=== PATIENT | male | born 2000 | race Caucasian/White ===

== ENCOUNTER 2024-04-09 09:20 | Emergency (ER) | payer OTHER ==
[2024-04-09] MEDS: Ketorolac 30 MG/ML SDV IM ONE (10:57)
[2024-04-09] MEDS: Ketorolac 30 MG/ML SDV ONE (12:42)
== END 2024-04-09 11:07 | disposition home or self-care (01) ==
LOC: LB.ED 09:20
DX: S90.32XA Contusion of left foot, initial encounter (principal); Z88.1 Allergy status to other antibiotic agents; Y93.H3 Activity, building and construction; Y92.89 Other specified places as the place of occurrence of the external cause
CPT/HCPCS: 73630-LT; 96372; 99283; J1885